=== PATIENT | female | born 1985 | race Caucasian/White ===

== ENCOUNTER 2018-11-09 15:19 | Emergency (ER) | payer OTHER ==
[~2018-11-09] VITALS: Ht 160 cm; Wt 85.6 kg
[~2018-11-09 15:19] MED LIST: DOCU-144 PO; IBUP-1542 PO; POLY17PO6 PO; PREN-39 PO; TRAM50TA2 PO
[2018-11-09 15:29] VITALS: BP 165/82; PULSE 89; RESP 18; Ht 160 cm; Wt 85.6 kg
--- NOTE | 2018-11-09 18:23 | ERD ---
ER Documentation Chief Complaint Chief Complaint BACK PAIN X 2 WEEKS WITH FREQUENCY OF URINATION HPI 33-year-old female, previously healthy, presents the emergency department, complaining of progressive worsening of lower back pain, dull, intermittent, /. During the last 3 days the patient also reports increased urinary frequency,dysuria, but no fever, no chills, no nausea or vomiting. ROS All systems reviewed and are negative except as per history of present illness. Medications Home Meds Active Scripts Baclofen* (Baclofen*) 10 Mg Tablet, 10 MG PO QHS PRN for MUSCLE SPASMS, #7 TAB Prov:ARELY GOLDSMITH MD 11/09/18 Ciprofloxacin Hcl* (Ciprofloxacin Hcl*) 250 Mg Tablet, 250 MG PO BID for 5 Days, #10 TAB Prov:ARELY OGLDSMITH MD 11/09/18 Polyethylene Glycol* (Miralax*) 17 Gm Powd.pack, 17 GM PO DAILY, #7 Prov:ARELY GOLDSMITH MD 11/09/18 Hydrocodone/Acetaminophen ([place] 5-325 Tablet) 1 Each Tablet, 1 TAB PO QHS PRN for PAIN, #7 TAB Prov:ARELY GOLDSMITH MD 11/09/18 Tramadol HCl (Tramadol HCl) 50 Mg Tablet, 50 MG PO Q6 PRN for PAIN, #20 TAB Prov:SARAH VALVERDE NP 09/10/16 Docusate Sodium* (Colace*) 100 Mg Capsule, 100 MG PO TID, #30 CAP Prov:SARAH VALVERDE NP 09/10/16 Polyethylene Glycol* (Miralax*) 17 Gm Powd.pack, 17 GM PO DAILY, #7 Prov:SARAH VALVERDE NP 09/10/16 Ibuprofen* (Ibuprofen*) 600 Mg Tab, 600 MG PO Q6, #20 0 Refills Prov:MARY CHILD MD 07/13/15 Reported Medications Vits W-Ca,Fe,Fa(<1MG) ( Vitamins) 1 Tab Tablet, 1 TAB PO 03/26/15 Allergies Allergies: Coded Allergies: No Known Allergy (Unverified , 09/10/16) PMhx/Soc Hx Alcohol Use: No Hx Substance Use: No Hx Tobacco Use: No Smoking Status: Never smoker FmHx Family History: No diabetes, No coronary disease Physical Exam Vitals Vital Signs Date Temp Pulse Resp B/P (MAP) Pulse Ox O2 O2 Flow FiO2 Time Delivery Rate 11/09/18 98.6 89 18 165/82 99 15:29 (109) Physical Exam Const: No acute distress Head: Atraumatic Eyes: Normal Conjunctiva ENT: Normal External Ears, Nose and Mouth. Neck: Full range of motion. No meningismus. Resp: Clear to auscultation bilaterally Cardio: Regular rate and rhythm, no murmurs Abd: Soft, non tender, non distended. Normal bowel sounds Skin: No petechiae or rashes Back: No midline or flank tenderness Ext: No cyanosis, or edema Neur: Awake and alert Psych: Normal Mood and Affect Results 24 hrs Laboratory Tests Test 11/09/18 18:48 11/09/18 18:50 Bedside Urine pH (LAB) 7.0 Bedside Urine Protein (LAB) Negative Bedside Urine Glucose (UA) Negative Bedside Urine Ketones (LAB) Negative Bedside Urine Blood 3+ Bedside Urine Nitrite (LAB) Negative Bedside Urine Leukocyte Esterase (L Negative POC Beta HCG, Qualitative NEGATIVE Current Medications Medications Dose Sig/Atiya Start Time Status Last (Trade) Ordered Route PRN Stop Time Admin Dose Reason Admin Ketorolac 30 mg ONCE STAT 11/09/18 DC 11/09/18 Tromethamine IM 18:29 18:56 (Toradol) 11/09/18 18:31 Procedures/MDM At the time of discharge, vital signs stable, Symptoms improved. Differential diagnosis include but not limited to: UTI, colitis, gastroenteritis, kidney stones, irritable bowel syndrome, inflammatory bowel syndrome, malabsorption syndrome, cholelithiasis, food intolerance, medication side effect, pancreatitis, diverticulitis, bowel obstruction. Low suspicion for acute abdomen Physical examination and clinical presentation consistent most likely with acute cystitis During the ED course the patient remained stable, no new complaints. The patient received treatment with Toradol IM presenting overall improvement of the symptoms. Results and clinical impression discussed with patient who agrees with management. The patient is stable to be treated outpatient and will be discharged home, some side effects of prescribed medications (headache, rash, nausea, vomiting, diarrhea, drowsiness, habituation, bleeding, hypertension, interactions with other medications) were reviewed. The patient was instructed to follow up with the primary care provider in the next 48h. If symptoms persist, worsen or new symptoms develop, then patient should return to the ED immediately. Instructions explained and given directly by me to the patient with acknowledgment and demonstrated understanding. Disclaimer: Inadvertent spelling and grammatical errors are likely due to EHR/dictation software use and do not reflect on the overall quality of patient care. Also, please note that the electronic time recorded on this note does not necessarily reflect the actual time of the patient encounter. Departure Diagnosis: Primary Impression: Acute cystitis Additional Impressions: Back pain Constipation Condition: Stable Patient Instructions: Back Pain (Acute Or Chronic), Constipation (Adult) Additional Instructions: Thank you very much for allowing us to participate in your care. Your health and safety is our top priority at [facility]. Call your primary care doctor TOMORROW for an appointment during the next 2-4 days and bring all the information and medications prescribed. Have prescriptions filled and follow precisely the directions on the label. If the symptoms get worse and your provider is unavailable, return to the Emergency Department immediately. ARELY GOLDSMITH MD Nov 09, 2018 18:23
[2018-11-09] MEDS ORDERED: KETOROLAC 30 MG INJ IM STA (18:29)
[2018-11-09] MEDS ORDERED: BACL10TA PO (20:14)
[2018-11-09] MEDS ORDERED: HYDR-4011 PO (20:14)
[2018-11-09] MEDS ORDERED: CIPR-193 PO (20:14)
[2018-11-09] MEDS ORDERED: POLY17PO6 PO (20:14)
== END 2018-11-09 20:21 | disposition home or self-care (01) ==
LOC: FTE 15:19
DX: N30.00 Acute cystitis without hematuria (principal); K59.00 Constipation, unspecified
CPT/HCPCS: 74019; 81003; 81025; 96372; J1885; Z7502

== ENCOUNTER 2018-11-19 22:21 | Emergency (ER) | payer OTHER ==
[~2018-11-19] VITALS: Wt 87.1 kg
[~2018-11-19 22:21] MED LIST changes: +BACL10TA PO; +CIPR-193 PO; +HYDR-4011 PO
[2018-11-20] MEDS ORDERED: KETOROLAC 60 MG INJ IM STA (01:22)
--- NOTE | 2018-11-20 01:33 | ERD ---
ER Documentation Chief Complaint Chief Complaint R LEG SWELLING/ PAIN X'S 2 DAYS HPI 33-year-old female presents with complaint of right leg pain and swelling for the past 2 days. In addition she states that she is also being treated for PID in the right leg swelling started the same time as treatment. States that the pain is currently an 8 out of 10 and she is taking ibuprofen which is been helping her last dose was at 7:00 so she is currently in pain. States that the pain goes from the thigh all the way down to her calf. Denies any history of trauma. She is able to ambulate but it does cause her some pain to do so. De nies recent travel, immobile status, chest pain, coughing, dyspnea, fevers, pallor, cyanosis. Denies past medical history. Denies allergies. Denies medications. Denies surgeries. Denies alcohol, tobacco, drug use. Up to date on vaccines. ROS All systems reviewed and are negative except as per history of present illness. Medications Home Meds Active Scripts Ibuprofen* (Motrin*) 600 Mg Tab, 600 MG PO Q6 for pain, #30 TAB Prov:FAITH DE LA CRUZ 11/20/18 Baclofen* (Baclofen*) 10 Mg Tablet, 10 MG PO QHS PRN for MUSCLE SPASMS, #7 TAB Prov:ARELY GOLDSMITH MD 11/09/18 Ciprofloxacin Hcl* (Ciprofloxacin Hcl*) 250 Mg Tablet, 250 MG PO BID for 5 Days, #10 TAB Prov:ARELY GOLDSMITH MD 11/09/18 Polyethylene Glycol* (Miralax*) 17 Gm Powd.pack, 17 GM PO DAILY, #7 Prov:ARELY GOLDSMITH MD 11/09/18 Hydrocodone/Acetaminophen ([place] 5-325 Tablet) 1 Each Tablet, 1 TAB PO QHS PRN for PAIN, #7 TAB Prov:ARELY GOLDSMITH MD 11/09/18 Tramadol HCl (Tramadol HCl) 50 Mg Tablet, 50 MG PO Q6 PRN for PAIN, #20 TAB Prov:SARAH VALVERDE NP 09/10/16 Docusate Sodium* (Colace*) 100 Mg Capsule, 100 MG PO TID, #30 CAP Prov:SARAH VALVERDE NP 09/10/16 Polyethylene Glycol* (Miralax*) 17 Gm Powd.pack, 17 GM PO DAILY, #7 Prov:TIMALEXEISARAH TRINIDAD MAAspen JarrettJuwan PEARSON 09/10/16 Ibuprofen* (Ibuprofen*) 600 Mg Tab, 600 MG PO Q6, #20 0 Refills Prov:MARY CHILD MD 07/13/15 Reported Medications Vits W-Ca,Fe,Fa(<1MG) ( Vitamins) 1 Tab Tablet, 1 TAB PO 03/26/15 Allergies Allergies: Coded Allergies: No Known Allergy (Unverified , 09/10/16) PMhx/Soc Medical and Surgical Hx: pt denies Medical Hx, pt denies Surgical Hx Hx Alcohol Use: No Hx Substance Use: No Hx Tobacco Use: No Smoking Status: Never smoker FmHx Family History: No diabetes, No coronary disease, No other Physical Exam Vitals Vital Signs Date Temp Pulse Resp B/P (MAP) Pulse Ox O2 O2 Flow FiO2 Time Delivery Rate 11/20/18 98.7 79 18 115/79 100 Room Air 04:23 (91) 11/19/18 87.1 102 18 143/91 100 22:30 (108) Physical Exam Const: No acute distress Head: Atraumatic Eyes: Normal Conjunctiva ENT: Normal External Ears, Nose and Mouth. Neck: Full range of motion. No meningismus. Resp: Clear to auscultation bilaterally Cardio: Regular rate and rhythm, no murmurs Abd: Soft, non tender, non distended. Normal bowel sounds Skin: No petechiae or rashes Back: No midline or flank tenderness Ext: Right leg is exquisitely tender to palpation medial aspect of thigh and calf. There is no erythema or obvious edema. No bony deformities. Skin is intact without lesions. Distal sensation and pulses is intact. Limited flexion of the knee. Patient is able to ambulate. No bony deformity, ecchymosis. Compartments are soft and warm. There is no pallor or cyanosis. Neur: Awake and alert Psych: Normal Mood and Affect Result Diagram: 11/20/18 0245 Results 24 hrs Laboratory Tests Test 11/20/18 02:14 11/20/18 02:45 POC Beta HCG, Qualitative NEGATIVE White Blood Count 10.0 10^3/ul Red Blood Count 4.15 10^6/ul Hemoglobin 12.0 g/dl Hematocrit 37.0 % Mean Corpuscular Volume 89.2 fl Mean Corpuscular Hemoglobin 28.9 pg Mean Corpuscular Hemoglobin Concent 32.4 g/dl Red Cell Distribution Width 14.6 % Platelet Count 311 10^3/UL Mean Platelet Volume 10.1 fl Immature Granulocytes % 0.400 % Neutrophils % 56.5 % Lymphocytes % 35.1 % Monocytes % 6.3 % Eosinophils % 1.1 % Basophils % 0.6 % Nucleated Red Blood Cells % 0.0 /100WBC Immature Granulocytes # 0.040 10^3/ul Neutrophils # 5.7 10^3/ul Lymphocytes # 3.5 10^3/ul Monocytes # 0.6 10^3/ul Eosinophils # 0.1 10^3/ul Basophils # 0.1 10^3/ul Nucleated Red Blood Cells # 0.0 10^3/ul Creatine Kinase 104 IU/L Current Medications Medications Dose Sig/Atiya Start Time Status Last (Trade) Ordered Route PRN Stop Time Admin Dose Reason Admin Ketorolac 60 mg ONCE STAT 11/20/18 DC 11/20/18 Tromethamine IM 01:22 02:18 (Toradol) 11/20/18 01:23 Procedures/MDM DIAGNOSTIC IMAGING REPORT Patient: CHINEDU YOUSIF : 1985 Age: 33 Sex: F MR #: [id number] DOS: 11/20/18 0120 Ordering MD: FAITH DE LA CRUZ Location: [facility] Room/Bed: PROCEDURE: Ultrasound examination of the right lower extremity with Doppler. CLINICAL INDICATION: Right leg pain and swelling. TECHNIQUE: Multiple sonographic images of the right lower extremity were performed with candelario scale and color Doppler. COMPARISON: None. FINDINGS: The right common femoral, superficial femoral and popliteal veins demonstrate normal color flow, waveforms, compression and response augmentation. There is no evidence of deep venous thrombosis. IMPRESSION: No evidence of deep venous thrombosis within the right lower extremity. .Warner De León MD, Date Time Electronically viewed and signed by .Warner De León MD, on 11/20/2018 02:28 .T/ CC: FAITH DE LA CRUZ [phone] 33-year-old female presents with complaint of right leg pain and swelling for the past 2 days. In addition she states that she is also being treated for PID in the right leg swelling started the same time as treatment. States that the pain is currently an 8 out of 10 and she is taking ibuprofen which is been helping her last dose was at 7:00 so she is currently in pain. States that the pain goes from the thigh all the way down to her calf. Denies any history of trauma. She is able to ambulate but it does cause her some pain to do so. Denies recent travel, immobile status, chest pain, coughing, dyspnea. There is some concern for possible DVT so ultrasound was ordered. Results within normal limits. Etiology regarding patient's leg pain is unclear as is no history of trauma or any signs of injury on physical exam. Patient given Rx for ibuprofen and told that she needs to follow-up with her primary care to investigate underlying etiology of leg pain. Patient discharged with strict ER precautions. Patient advised to follow up with PMD. All questions answered at discharge. Departure Diagnosis: Primary Impression: Leg pain Laterality: right Qualified Codes: M79.604 - Pain in right leg Condition: Stable FAITH DE LA CRUZ Nov 20, 2018 01:33
[2018-11-20] MEDS ORDERED: IBUP-1542 PO (04:01)
[2018-11-20 04:23] VITALS: BP 115/79; PULSE 79; RESP 18
== END 2018-11-20 04:43 | disposition home or self-care (01) ==
LOC: FTE 22:21
DX: M79.604 Pain in right leg (principal)
CPT/HCPCS: 36415; 81025; 82550; 85025; 93971; 96372; J1885; Z7502

== ENCOUNTER 2019-04-20 08:33 | Emergency (ER) | payer OTHER ==
[~2019-04-20] VITALS: Ht 162.6 cm; Wt 87.3 kg
[2019-04-20 08:37] VITALS: Ht 162.6 cm; Wt 87.3 kg
[2019-04-20] MEDS ORDERED: ACETAMINOPHEN 500 MG TAB PO STA (09:29)
--- NOTE | 2019-04-20 10:02 | ERD ---
ER Documentation Chief Complaint Chief Complaint sore throat , congestion x 2 weeks , eye discharge x 1 day HPI This is a 33-year-old female with a nonsignificant past medical history presents ED with complaints of sore throat x2 weeks. Patient states over the past 3 days she developed a cough. Admits to sputum production, right ear pain. Patient also developed bilateral eye redness with discharge over the past day. Denies blurry vision, changes in vision, eye pain. Does not wear contacts. Admits to fever of 101 this morning. Denies trouble breathing, shortness breath, chest pain, runny nose, nausea, vomiting, diarrhea, constipation, abdominal pain and all other symptoms. No known drug allergies. Immunizations up-to-date ROS All systems reviewed and are negative except as per history of present illness. Medications Home Meds Active Scripts Ibuprofen* (Motrin*) 600 Mg Tab, 600 MG PO Q6 for pain, #30 TAB Prov:FAITH DE LA CRUZ 11/20/18 Baclofen* (Baclofen*) 10 Mg Tablet, 10 MG PO QHS PRN for MUSCLE SPASMS, #7 TAB Prov:ARELY GOLDSMITH MD 11/09/18 Ciprofloxacin Hcl* (Ciprofloxacin Hcl*) 250 Mg Tablet, 250 MG PO BID for 5 Days, #10 TAB Prov:ARELY GOLDSMITH MD 11/09/18 Polyethylene Glycol* (Miralax*) 17 Gm Powd.pack, 17 GM PO DAILY, #7 Prov:ARELY GOLDSMITH MD 11/09/18 Hydrocodone/Acetaminophen ([place] 5-325 Tablet) 1 Each Tablet, 1 TAB PO QHS PRN for PAIN, #7 TAB Prov:ARELY GOLDSMITH MD 11/09/18 Tramadol HCl (Tramadol HCl) 50 Mg Tablet, 50 MG PO Q6 PRN for PAIN, #20 TAB Prov:SARAH VALVERDE NP 09/10/16 Docusate Sodium* (Colace*) 100 Mg Capsule, 100 MG PO TID, #30 CAP Prov:SARAH VALVERDE NP 09/10/16 Polyethylene Glycol* (Miralax*) 17 Gm Powd.pack, 17 GM PO DAILY, #7 Prov:SARAH VALVERDE NP 09/10/16 Ibuprofen* (Ibuprofen*) 600 Mg Tab, 600 MG PO Q6, #20 0 Refills Prov:MARY CHILD MD 07/13/15 Reported Medications Vits W-Ca,Fe,Fa(<1MG) ( Vitamins) 1 Tab Tablet, 1 TAB PO 03/26/15 Allergies Allergies: Coded Allergies: No Known Allergy (Unverified , 09/10/16) PMhx/Soc Medical and Surgical Hx: pt denies Medical Hx, pt denies Surgical Hx Hx Alcohol Use: No Hx Substance Use: No Hx Tobacco Use: No FmHx Family History: No diabetes Physical Exam Vitals Vital Signs Date Temp Pulse Resp B/P (MAP) Pulse Ox O2 O2 Flow FiO2 Time Delivery Rate 04/20/19 97.9 81 18 122/73 100 08:37 (89) Physical Exam Physical Exam Vitals signs: Reviewed by me. General: Well developed, well nourished, in no acute distress. Patient is awake and alert. Head: Normocephalic, atraumatic. Eyes: Normal conjunctiva, Pupils PERRLA, EOM intact grossly ENT: Pharynx is clear, Moist mucous membranes, external ears, nose and mouth normal, there is mild tonsillar adenopathy with exudate noted to the right tonsil, no tonsillar erythema, no kissing tonsils, no uvula deviation Neck: Supple, no masses, lymphadenopathy or JVD Respiratory: Clear to auscultation bilaterally with no wheezing, rhonchi, rales, no distress Cardiovascular: RRR, no murmurs, rubs, or gallops MSK: No edema, no unilateral swelling, 5/5 strength Back: No midline tenderness. No flank tenderness Neurologic: Alert and oriented, moving all extremities, normal speech, no focal weakness, no cerebellar signs. Normal mentation Skin: warm and dry, No rash Psych: Normal mood Results 24 hrs Current Medications Medications Dose Sig/Atiya Start Time Status Last (Trade) Ordered Route PRN Stop Time Admin Dose Reason Admin 1,000 mg ONCE STAT 04/20/19 DC 04/20/19 Acetaminophen PO 09:29 09:46 (Tylenol 04/20/19 09:32 Tab) Procedures/MDM EKG, MONITORS, & DIAGNOSTIC IMAGING: [place] [address] Radiology Main Line: [phone] DIAGNOSTIC IMAGING REPORT Patient: CHINEDU YOUSIF : 1985 Age: 33 Sex: F MR #: [id number] DOS: 04/20/19 0929 Ordering MD: LAURO BOWERS PA-C Location: [facility] Room/Bed: PROCEDURE: XR Chest. CLINICAL INDICATION: Cough. TECHNIQUE: Chest, 1 view. COMPARISON: None. FINDINGS: The cardiomediastinal silhouette is normal in size. No focal consolidation is seen. No pleural effusion is seen. No definite pneumothorax is seen. No acute osseous abnormality. IMPRESSION: No radiographic evidence of an acute cardiopulmonary process. RPTAT: [facility]WH Amador Summers Physician Date Time Electronically viewed and signed by Amador Summers Physician on 04/20/2019 10:16 PH/ CC: LAURO BOWERS PA-C [id number] LAB INTERPRETATION: strep negative ER COURSE: The patient was stable throughout ED course. I kept the patient and/or family informed of laboratory and diagnostic imaging results throughout the emergency room course. The patient was promptly evaluated and a treatment plan was devised based on H&P and other data. This plan was discussed with the patient who agreed and had no further questions or concerns prior to discharge. MEDICAL DECISION MAKING: This is a 33-year-old male presents ED with complaints of sore throat, cough and congestion x2 weeks as well as I discharge x1 day. Physical examination is remarkable for some tonsillar adenopathy with some possible exudate noted on the right tonsil. Proceed with ordering strep. Strep is negative. Chest x-ray is normal. The patient's clinical presentation is very consistent with an URI. No evidence of pneumonia. The patient is well-appearing without respiratory distress. Normal oxygen saturation. No indication for Tamiflu. Patient does have bilateral eye redness with discharge. This is likely a bacterial conjunctivitis. No evidence of globe perforation, acute angle glaucoma, orbital cellulitis, among others. Patient has no pain with eye movements. The patient does not exhibit any clinical signs or symptoms concerning for serious bacterial infection or systemic illness. Based on history and clinical exam findings the patient does not appear to have evidence of pneumonia, strep pharyngitis, urinary tract infection, bacteremia, sepsis, or meningitis. For these reasons I do not believe it is necessary to obtain laboratory testing or diagnostic imaging. I believe it would be appropriate for symptom control, and close outpatient primary care follow-up. We discussed follow up with the patient's primary care doctor within 24 to 48 hours as needed. We also discussed return to the emergency room for worsening symptoms or worsening condition. DISPOSITION PLAN: We discussed follow up with the patient's primary care doctor within 24 to 48 hours. Patient counseled regarding my diagnostic impression and care plan. Prior to discharge all questions answered. Pt agrees with treatment plan and understands strict return precautions. Precautionary instructions provided including instructions to return to the ER if not improving or for any worsening or changing symptoms or concerns. SPECIALIST FOLLOW UP RECOMMENDED: None Patient has been advised to follow up with primary care in 1-2 days. Disclaimer: Inadvertent spelling and grammatical errors are likely due to EHR/dictation software use and do not reflect on the overall quality of patient care. Also, please note that the electronic time recorded on this note does not necessarily reflect the actual time of the patient encounter. Departure Diagnosis: Primary Impression: URI (upper respiratory infection) URI type: unspecified URI Qualified Codes: J06.9 - Acute upper respiratory infection, unspecified Additional Impression: Conjunctivitis of both eyes Conjunctivitis type: acute Acute conjunctivitis type: bacterial Qualified Codes: H10.33 - Unspecified acute conjunctivitis, bilateral Condition: Stable Patient Instructions: Preventing Common Respiratory Infections, Uri, Viral, No Abx (Adult) Referrals: [facility] Additional Instructions: Patient advised to return to the ED immediately for new or worsening symptoms. Patient advised to follow up with primary care provider in the next 24-48 hours. Patient verbalized understanding and agrees with treatment plan and course of action. If patient has no primary care they may follow up with one of the community clinics listed on the following page or one of the options listed below [facility] + [address] [address] [address] [address] or [facility] [address] [address] LAURO BOWERS PA-C Apr 20, 2019 10:02
[2019-04-20] MEDS ORDERED: POLY10DR19 BOTH EYES (10:29)
[2019-04-20] MEDS ORDERED: D-ME473S2 PO (10:29)
[2019-04-20 10:38] VITALS: BP 117/69; PULSE 77; RESP 18
== END 2019-04-20 10:41 | disposition home or self-care (01) ==
LOC: FTE 08:33
DX: J06.9 Acute upper respiratory infection, unspecified (principal); H10.33 Unspecified acute conjunctivitis, bilateral
CPT/HCPCS: 71045; 87880; Z7502; Z7610

== ENCOUNTER 2019-05-30 01:12 | Emergency (ER) | payer OTHER ==
[~2019-05-30] VITALS: Ht 154.9 cm; Wt 88.4 kg
[~2019-05-30 01:12] MED LIST changes: +D-ME473S2 PO; +ELEC100095 PO; +MAGN400O19 PO; +ONDA4TAB14 PO; +POLY10DR19 BOTH EYES; +PSYL660P17 PO
[2019-05-30 01:14] VITALS: Ht 154.9 cm; Wt 88.4 kg
[2019-05-30] MEDS ORDERED: METOCLOPRAMIDE 10 MG INJ IV STA (01:35)
[2019-05-30] MEDS ORDERED: ONDANSETRON 4 MG INJ IV STA (01:35)
[2019-05-30] MEDS ORDERED: SOD CHLORIDE 0.9% 1,000 ML IV STA (01:35)
[2019-05-30 03:00] VITALS: BP 102/68; PULSE 75; RESP 18
== END 2019-05-30 03:13 | disposition home or self-care (01) ==
LOC: FTE 01:12
DX: K52.9 Noninfective gastroenteritis and colitis, unspecified (principal); K59.01 Slow transit constipation
CPT/HCPCS: 36415; 76705; 80053; 81001; 81025; 83690; 85025; 96361; 96374; 96375; J2405; J2765; J7030; Z7502